=== PATIENT | female | born 1965 | race Caucasian/White ===

== ENCOUNTER → 2022-02-16 14:11 | Outpatient (BNVA) | payer OTHER, SELFPAY | PROVIDERS: PCP Family Medicine; Visit Provider Student in an Organized Health Care Education/Training Program | DX: M25.461 Effusion, right knee (principal) | CPT/HCPCS: 20610 ==

== ENCOUNTER 2022-02-16 16:28 | Outpatient (REF) | payer OTHER, SELFPAY ==
[2022-02-16 16:48] LABS: MN% 93.4 %; PMN% 6.6 %; WBC Synovial Fluid 0.401 X10*3/uL
[2022-02-16 16:50] LABS: RBC Synovial Fluid < 0.002 X10*6/uL
[2022-02-16 17:43] LABS: BF Shift QC OK YES; Lymphocytes Synovial Fluid 3 %; Monocytes Synovial Fluid 95 %; Neutrophils Synovial Fluid 1 %; Other Cells Synovial Fluid 1; Source Synovial Fluid RIGHT KNEE
== END 2022-02-16 16:29 | disposition home or self-care (01) ==
LOC: HO.LNP 16:28
PROVIDERS: Visit Provider Student in an Organized Health Care Education/Training Program
DX: M25.461 Effusion, right knee (principal)
CPT/HCPCS: 87070; 87073; 87205; 89051; 89060

== ENCOUNTER 2022-02-17 13:36 | Outpatient (REF) | payer OTHER, SELFPAY ==
[2022-02-17 14:24] LABS: Basophils Percent Auto 0.1 % (0-2); Hematocrit 43.8 % (37.0-47.0); Hemoglobin 14.1 g/dl (12.0-16.0); Imm Gran Abs Auto 0.08 X10*3/uL (0.00-0.03); Imm Gran Pct Auto 0.4 % (0.0-0.4); Lymphocytes Absolute Auto 1.2 X10*3/uL (1.2-4.9); Lymphocytes Percent Auto 6.9 % (20-40); MANUAL DIFF FLAG SCAN; Mean Corpuscular HGB Conc 32.2 g/dl (31.0-35.0); Mean Corpuscular Hemoglobin 29.9 pg (27.0-33.0); Mean Corpuscular Volume 92.8 fL (80.0-98.0); Mean Platelet Volume 9.9 fL (9.4-12.3); Monocytes Absolute Auto 0.4 X10*3/uL (0.1-1.2); Monocytes Percent Auto 2.4 % (2-11); Neutrophils Absolute Auto 16.1 x10*3/uL (2.0-8.3); Neutrophils Percent Auto 90.2 % (45-73); Platelet Count 361 X10*3/uL (160-400); Red Blood Count 4.72 X10*6/uL (4.20-5.50); Red Cell Distribution Width 12.2 % (11.0-16.0); SCAN SMEAR FLAG 1; White Blood Count 17.8 X10*3/uL (4.8-10.8)
[2022-02-17 14:29] LABS: Appearance Urine Clear; Color Urine Yellow; Glucose Urine UA Negative (Negative); Leukocyte Esterase Urine Negative (Negative); Nitrite Urine Negative (Negative); PH 6.5 (5.0-9.0); Urine Blood Negative (Negative); Urine Ketones Negative (Negative); Urine Protein Negative (Neg-Trace)
[2022-02-17 14:32] LABS: Bacteria Urine None Seen (None Seen); Hyaline Casts Urine 0-2 /LPF (0-2); RBC Urine 0-2 /HPF (0-2); WBC Urine 0-5 /HPF (0-5)
[2022-02-17 14:45] LABS: SLIDE REVIEW VERIFIED
[2022-02-17 14:50] LABS: Alanine Aminotransferase 22 U/L (0-31); Albumin Level 4.8 g/dL (3.5-5.0); Alkaline Phosphatase 119 U/L (39-117); Anion Gap 11 (12-20); Aspartate Amino Transferase 19 U/L (5-31); Bilirubin Total 0.3 mg/dL (0.0-1.0); Blood Urea Nitrogen 21 mg/dL (9-16); C Reactive Protein 0.14 mg/dL (< or = 0.50); Calcium 10.1 mg/dL (8.4-10.2); Carbon Dioxide 26 mmol/L (22-29); Chloride 107 mmol/L (96-108); Estimated Glomerular Filt Rate > 60; Glucose Random 127 mg/dL (60-115); Potassium 4.5 mmol/L (3.3-5.1); Sodium 139 mmol/L (135-145); Total Protein 7.7 g/dL (6.5-8.0); Uric Acid 3.3 mg/dL (2.4-5.7)
[2022-02-17 14:59] LABS: Erythrocyte Sedimentation Rate 12 MM/HR (0-20)
[2022-02-20 13:09] LABS: Anti Nuclear Antibody Screen NEGATIVE (NEGATIVE)
[2022-02-21 16:19] LABS: Cyclic Citrullinated Peptide <16 UNITS
== END 2022-02-17 13:37 | disposition home or self-care (01) ==
LOC: HO.LAB 13:36
PROVIDERS: PCP Family Medicine; Visit Provider Student in an Organized Health Care Education/Training Program
DX: M25.461 Effusion, right knee (principal)
CPT/HCPCS: 36415; 80053; 81001; 84550; 85025; 85652; 86038; 86039; 86140; 86200; 86431

== ENCOUNTER → 2022-04-14 13:44 | Outpatient (BNVA) | payer OTHER, SELFPAY | PROVIDERS: PCP Family Medicine; Visit Provider Student in an Organized Health Care Education/Training Program | DX: Z13.89 Encounter for screening for other disorder (principal) ==

== ENCOUNTER 2024-11-24 15:53 | Outpatient (AMB) | payer OTHER, SELFPAY ==
--- OUTSIDE RECORDS SUMMARY | 2024-11-24 18:12 | XMS_ITS | Patient Health Record ---
Author Organization [facility] Address [address] [place] [address] Care Team Providers Care Analytics Senior Manager Name Role Phone FABIOLA GUEVARA Primary Care Provider FILEMON King Unavailable [phone] Allergies No Known Allergies Reason For Referral No Information Medications Medication SIG (Take, Route, Fr equency, Duration) Notes Start Date End Date Status Multivitamins 1 ORAL daily; Duration: -3 3 Active Advair Diskus 250-50 1 Inhalation TWICE DAILY; Duration: -3 10/03/2012 Active Albuterol Active Social History Sexual History Question Answer Notes Had sex in the past 12 months (vaginal, oral, or anal)? Yes with Men only AUDIT-C (Standard) Question Answer Notes Did you have a drink contain ing alcohol in the past year? Yes How often did you have a dri nk containing alcohol in the past year? 2 to 4 times a month (2 points) How many drinks did you have on a typical day when you were drinking in the past year? 1 or 2 drinks (0 point) How often did you have six o r more drinks on one occasion in the past year? Never (0 point) Points 2 Interpretation Negative Problems Problem Type SNOMED Code ICD Code Onset Dates Problem Status W/U Status Risk Notes Problem Amenorrhea (67404885) Amenorrhea, unspecified (N91.2) Active confirmed Problem Abnormal uterine bleeding (38284914114720) Abnormal uterine and vaginal bleeding, unspecified (N93.9) Active confirmed Problem Chronic sinusitis (89411955) Unspecified sinusitis (chronic) (473.9) Active confirmed Diag Problem Asthma (disorder) (181052075) Asthma, unspecified, unspecified status (493.90) Active confirmed Major Problem Cyst of ovary (28937588) Other and unspecified ovarian cyst (620.2) Active confirmed Major Problem Female genital organ symptoms (191424457) Other specified symptom associated with female genital organs (625.8) Active confirmed Major Problem Light and infrequent menstruation (614343181) Scanty or infrequent menstruation (626.1) Active confirmed Major Problem Female infertility (3683640) Female infertility of unspecified origin (628.9) Active confirmed Major Problem Gynecological examination normal (935722692725352) Routine gynecological examination (V72.31) Active confirmed Major Vital Signs Temperature 98.0 degrees Fahrenheit 04/17/2024 Blood pressure diastolic 84 mm Hg 04/17/2024 Height 62.75 in 04/17/2024 Blood pressure systolic 138 mm Hg 04/17/2024 Weight 155 lbs 04/17/2024 BMI 27.67 kg/m2 04/17/2024 Encounters Encounter Location Date Provider Diagnosis [address] [place] [address] 04/17/2024 FILEMON AYERS Encounter for gynecological examination (general) (routine) without abnormal findings Z01.419 and Encounter for screening mammogram for malignant neoplasm of breast Z12.31 Assessments Encounter Date Diagnosis (ICD Code) Assessment Notes Treatment Notes Treatment Clinical Notes Section Notes 04/17/2024 Encounter for gynecological examination (general) (routine) without abnormal findings (ICD-10 - Z01.419) During the visit, the following areas of concern were addressed: Discussed cervical cancer screening with either cytology alone every 3 years or high risk HPV co-testing every 5 years as per ASCCP guidelines. Advised continued annual pelvic exams. Patient encouraged to increase her level of exercise. SBE technique encouraged/tau ght. Patient reminded when annual mammogram is due. Patient encouraged to keep colon screening up to date. 04/17/2024 Encounter for screening mammogram for malignant neoplasm of breast (ICD-10 - Z12.31) Plan Of Treatment Pending Test Test Name Order Date Test, Urine 03/24/2021 Test, Urine 08/05/2021 Test, Urine 03/23/2020 Urinalysis 03/23/2020 THIN PREP (DIAG) 08/27/2018 ULTRASOUND: PELVIC W/TRANSVAGINAL 2020 MM Digital Screening Mammogram 3D 2020 MM Digital Screening Mammogram 3D 2022 MM Digital Screening Mammogram 3D 2023 MM Digital Screening Mammogram 3D 2024 MM Digital Screening Mammogram 3D 2021 Next Appt Details Provider Name:FILEMON DOWNS Massimo, 04/27/2025 03:30:00 PM, [address], [address], [place], [address], Insurance Providers Payer Name Payer Address Payer Phone Subscriber Number Group Number Insured Name Patient Relationship to Insured Coverage Start Date Coverage End Date [facility] [address] [place] [address] [phone] [id number] KIM TAYLOR Spouse - patient is the spouse of the insured Medical (General) History Medical History History ICD Code Chronic sinusitis, unspecified J32.9 Other asthma J45.998 Oligomenorrhea, unspecified N91.5 Female infertility, unspecified N97.9 Unspecified ovarian cysts N83.20 Other specified conditions a ssociated with female genital organs and menstrual cycle N94.89 Unspecified malignant neoplasm of skin, unspecified C44.90 Endometriosis, unspecified N80.9 Left lower quadrant pain R10.32 Abnormal uterine and vaginal bleeding, u nspecified N93.9 Amenorrhea, unspecified N91.2 Surgical History Surgery Date(Month/Year) Sinus Surgery 1995 Ovarian Cyst Drained & salpingectomy 04/20 013 Kidney Stone 08/2020 Dental surgery 10/2022 Hospitalization History Reason Date(Month/Year) See Surgical Hx
--- OUTSIDE RECORDS SUMMARY | 2024-11-24 18:12 | XMS_ITS | Clinical Summary ---
Author Organization [facility] Address [address] [place] [address] Care Team Providers Care Vegetable Canner Name Role Phone Unavailable Primary Care Provider Unavailabl e Immunizations Immunization Administration Dates Next Due PPD/TST (Tuberculin Skin Test) 10/17/2007 Social History Tobacco Use Types Packs/Day Years Used Date Smoking Tobacco: Never Assessed Comments Unknown Sex and Gender Information Value Date Recorded Sex Assigned at Not on file Legal Sex Female 12:04 AM EDT Gender Identity Not on file Sexual Orientation Not on file Plan of Treatment Health Maintenance Due Date Last Done Comments Hepatitis C Screening 1967 Pap Smear 1983 DTaP/Tdap/Td (1 - Tdap) 09/03/1985 Hep B (1 of 3 - 19+ 3-dose series) 09/03/1986 Mammogram/Breast Imaging 2007 Pneumococcal 50+ years (1 of 1 - PCV) 09/03/2017 Zoster (Shingrix) (1 of 2) 09/03/2017 COVID-19 Vaccine (1 - 2023-2 5 season) 2024 Influenza (#1) 2024 HPV Vaccine (No Doses Required) Completed Hep A Aged Out No longer eligi ble based on patient's age to complete this topic Hib Aged Out No longer eligi ble based on patient's age to complete this topic Meningococcal ACWY Aged Out No longer eligible based on patient's age to complete this topic
== END 2024-11-24 15:54 | disposition home or self-care (01) ==
LOC: HO.HMGAL 15:53
PROVIDERS: PCP Family Medicine; Visit Provider Registered Nurse Emergency
DX: J30.89 Other allergic rhinitis (principal)
CPT/HCPCS: 95117; 95165

== ENCOUNTER 2024-12-17 14:44 | Outpatient (AMB) | payer OTHER, SELFPAY ==
--- OUTSIDE RECORDS SUMMARY | 2024-12-17 19:07 | XMS_ITS | Patient Health Record ---
Author Organization [facility] Address [address] [place] [address] Care Team Providers Care Almond Grinder Name Role Phone FABIOLA GUEVARA Primary Care Provider FILEMON King Unavailable [phone] Allergies No Known Allergies Reason For Referral [...] Status W/U Status Risk Notes Problem Amenorrhea (16603846) Amenorrhea, unspecified (N91.2) Active confirmed Problem Abnormal uterine bleeding (04078906089306) Abnormal uterine and vaginal bleeding, unspecified (N93.9) Active confirmed Problem Chronic sinusitis (10031630) Unspecified sinusitis (chronic) (473.9) Active confirmed Diag Problem Asthma (disorder) (967015296) Asthma, unspecified, unspecified status (493.90) Active confirmed Major Problem Cyst of ovary (15517816) Other and unspecified ovarian cyst (620.2) Active confirmed Major Problem Female genital organ symptoms (689292037) Other specified symptom associated with female genital organs (625.8) Active confirmed Major Problem Light and infrequent menstruation (392740147) Scanty or infrequent menstruation (626.1) Active confirmed Major Problem Female infertility (8882767) Female infertility of unspecified origin (628.9) Active confirmed Major Problem Gynecological examination normal (101849264004502) Routine gynecological examination (V72.31) Active confirmed Major Vital Signs Temperature 98.0 degrees Fahrenheit 04/17/2024 Blood pressure diastolic 84 mm Hg 04/17/2024 Height 62.75 in 04/17/2024 Blood pressure systolic 138 mm Hg 04/17/2024 Weight 155 lbs 04/17/2024 BMI 27.67 kg/m2 04/17/2024 Encounters Encounter Location Date Provider Diagnosis [address] [place] [address] 04/17/2024 FILEMON AYERS Encounter for gynecological examination [...] Name:FILEMON DOWNS Massimo, 04/27/2025 03:30:00 PM, [address], [place], [address], Insurance Providers Payer Name Payer Address Payer Phone Subscriber Number Group Number Insured Name Patient Relationship to Insured Coverage Start Date Coverage End Date [facility] [address] [place] [address] [id number] KIM TAYLOR Spouse - patient is the [...]
--- OUTSIDE RECORDS SUMMARY | 2024-12-17 19:07 | XMS_ITS | Clinical Summary ---
Author Organization [facility] Address [address] [place] [address] Care Team Providers Care Human Resources Executive Name Role Phone Unavailable Primary Care Provider [...] (Shingrix) (1 of 2) 09/03/2017 COVID-19 Vaccine ( - 2024-2 6 season) 2024 Influenza (#1) 2024 HPV Vaccine [...]
== END 2024-12-17 14:44 | disposition home or self-care (01) ==
LOC: HO.HMGAL 14:44
PROVIDERS: PCP Family Medicine; Visit Provider Registered Nurse Emergency
DX: J30.89 Other allergic rhinitis (principal)
CPT/HCPCS: 95117; 95165

== ENCOUNTER 2025-01-21 16:02 | Outpatient (AMB) | payer OTHER, SELFPAY ==
--- OUTSIDE RECORDS SUMMARY | 2025-01-21 18:48 | XMS_ITS | Patient Health Record ---
Author Organization [facility] Address [address] [place] [address] Care Team Providers Care Control Engineer Name Role Phone FABIOLA GUEVARA Primary Care Provider FILEMON King Unavailable [phone] Allergies No Known Allergies Reason For Referral [...] Status W/U Status Risk Notes Problem Amenorrhea (45139369) Amenorrhea, unspecified (N91.2) Active confirmed Problem Abnormal uterine bleeding (50643182539860) Abnormal uterine and vaginal bleeding, unspecified (N93.9) Active confirmed Problem Chronic sinusitis (09895296) Unspecified sinusitis (chronic) (473.9) Active confirmed Diag Problem Asthma (disorder) (347740634) Asthma, unspecified, unspecified status (493.90) Active confirmed Major Problem Cyst of ovary (74352308) Other and unspecified ovarian cyst (620.2) Active confirmed Major Problem Female genital organ symptoms (022916515) Other specified symptom associated with female genital organs (625.8) Active confirmed Major Problem Light and infrequent menstruation (527263955) Scanty or infrequent menstruation (626.1) Active confirmed Major Problem Female infertility (2800728) Female infertility of unspecified origin (628.9) Active confirmed Major Problem Gynecological examination normal (469496802082424) Routine gynecological examination (V72.31) Active confirmed Major Vital Signs Temperature 98.0 degrees Fahrenheit 04/17/2024 Blood pressure diastolic 84 mm Hg 04/17/2024 Height 62.75 in 04/17/2024 Blood pressure systolic 138 mm Hg 04/17/2024 Weight 155 lbs 04/17/2024 BMI 27.67 kg/m2 04/17/2024 Encounters Encounter Location Date Provider Diagnosis [address] [place] [address] 04/17/2024 FILEMON AYERS Encounter for gynecological examination [...] Name:FILEMON DOWNS Massimo, 04/27/2025 03:30:00 PM, [address], [address], [place], [address], Insurance Providers Payer Name Payer Address Payer Phone Subscriber Number Group Number Insured Name Patient Relationship to Insured Coverage Start Date Coverage End Date [facility] [address] [place] [address] [id number] KIM TAYLOR Spouse - patient is the [...]
--- OUTSIDE RECORDS SUMMARY | 2025-01-21 18:48 | XMS_ITS | Clinical Summary ---
Author Organization [facility] Address [address] [place] [address] Care Team Providers Care Materials Director Name Role Phone Unavailable Primary Care Provider [...] 2024-2 6 season) 2024 Influenza (#1) 2024 RSV (1 - 1-dose 75+ series) 09/03/2042 HPV Vaccine (No Doses Required) Completed Hep A Aged Out No longer eligi ble based on patient's age to complete this topic Hib Aged Out No longer eligi ble based on patient's age to complete this topic Meningococcal ACWY Aged Out No longer eligible based on patient's age to complete this topic
== END 2025-01-21 16:02 | disposition home or self-care (01) ==
LOC: HO.HMGAL 16:02
PROVIDERS: PCP Family Medicine; Visit Provider Registered Nurse Emergency
DX: J30.89 Other allergic rhinitis (principal)
CPT/HCPCS: 95117; 95165